=== PATIENT | male | born 1965 | race Caucasian/White ===

== ENCOUNTER → 2022-04-12 | Day surgery (SDC) | payer OTHER ==
[~2022-04-12] VITALS: Ht 175.3 cm; Wt 74.8 kg
[~2022-04-12] MED LIST: ALLERGY RELIEF10 MG PO; ASPIRIN EC81 MG PO; BREO ELLIPTA 11 EACH INH; COZAAR100 MG PO; FLEXERIL10 MG PO; HYDROXYZINE 10M10 MG PO; LOSARTAN POTASS50 MG PO; MELOXICAM15 MG PO; NORVASC5 MG PO; ROSUVASTATIN CAL5 MG PO; VENTOLIN HFA IN18 GM INH; VOLTAREN **OUT75 MG PO
== END | disposition home or self-care (01) ==
LOC: FAS 07:43
DX: Z12.11 Encounter for screening for malignant neoplasm of colon (principal); D12.5 Benign neoplasm of sigmoid colon; K57.30 Diverticulosis of large intestine without perforation or abscess without bleeding; I10 Essential (primary) hypertension; J44.9 Chronic obstructive pulmonary disease, unspecified; E78.5 Hyperlipidemia, unspecified; F17.210 Nicotine dependence, cigarettes, uncomplicated; Z79.82 Long term (current) use of aspirin; Z79.899 Other long term (current) drug therapy
CPT/HCPCS: J2704; J7120